=== PATIENT | male | born 1990 | race Native Hawaiian/Other Pacific Islander ===

== ENCOUNTER → 2016-09-09 11:05 | Outpatient (CLI) | payer OTHER | END | disposition short-term general hospital (02) | LOC: AMB 11:05 | DX: S72.8X1A Other fracture of right femur, initial encounter for closed fracture (principal); S82.891A Other fracture of right lower leg, initial encounter for closed fracture; V49.88XA Car occupant (driver) (passenger) injured in other specified transport accidents, initial encounter; Y92.488 Other paved roadways as the place of occurrence of the external cause | CPT/HCPCS: A0427 ==